=== PATIENT | female | born 1975 | race Caucasian/White ===

== ENCOUNTER 2023-12-17 23:10 | Emergency (ER) | payer BC ==
[2023-12-18 00:22] LABS: Influenza A by NAA Not Detected (NotDetected); Influenza B by NAA Not Detected (NotDetected); SARS-CoV-2 NAA Rapid Test DETECTED (NotDetected)
== END 2023-12-17 23:45 | disposition home or self-care (01) ==
LOC: BURERS 23:10
DX: B34.9 Viral infection, unspecified (principal); Z11.59 Encounter for screening for other viral diseases
CPT/HCPCS: 99283